=== PATIENT | female | born 1990 | race Caucasian/White ===

== ENCOUNTER 2016-06-26 11:23 | Emergency (ER) | payer SELFPAY ==
[~2016-06-26] VITALS: Ht 154.9 cm; Wt 67.9 kg
[2016-06-26 11:28] VITALS: BP 116/73
[2016-06-26] MEDS ORDERED: SODIUM CHLORIDE FLUSH 10ML SYR IVF ONE (13:30)
== END 2016-06-26 13:40 | disposition left against medical advice (07) ==
LOC: ED 13:29
DX: R10.9 Unspecified abdominal pain (principal); Z53.21 Procedure and treatment not carried out due to patient leaving prior to being seen by health care provider
CPT/HCPCS: 99281